=== PATIENT | female | born 1955 | race Hispanic/Latino ===

== ENCOUNTER 2017-07-06 22:28 | Emergency (ER) | payer BC ==
[2017-07-06 23:10] LABS: Hemoglobin 14.8 g/dL (12.0-16.0); Mean Corpuscular HGB CONC 34.5 g/dL (32.0-36.0); Mean Corpuscular Hemoglobin 30.3 pg (27.0-31.0); Mean Corpuscular Volume 87.8 fl (81.0-99.0); Mean Platelet Volume 11.3 fL (7.4-10.4); Platelet Count 208 thou/uL (130-400); RBC Distribution Width 11.4 % (11.5-14.5); Red Blood Cell (RBC) Count 4.87 mill/uL (4.20-5.40); White Blood Cell (WBC) Count 10.1 thou/uL (4.8-10.8)
--- NOTE | 2017-07-06 23:10 | CT ---
CT OF HEAD NONCONTRAST 07/06/17 INDICATION: Recent onset dizziness, near syncope. FINDINGS: There is no acute intracranial hemorrhage, mass effect, midline shift or ventriculomegaly. Mild mucos al thickening is seen within the paranasal sinuses. IMPRESSION: No acute intracranial abnormalities. POS: [facility]
--- NOTE | 2017-07-06 23:11 | RAD ---
PORTABLE AP CHEST X-RAY 07/06/17 HISTORY: Altered mental status and dizziness. COMPARISON: 07/12/15. FINDINGS: The cardiac silhouette and pulmonary vasculature are within normal limits. The lungs remain clear. Th ere has been no interval change when compared to the prior exam. IMPRESSION: No acute cardiopulmonary process. POS: [facility]
[2017-07-06 23:13] LABS: ALT (SGPT) 30 U/L (8-55); AST (SGOT) 24 U/L (5-34); Albumin 4.1 g/dL (3.4-4.8); Alkaline Phosphatase 77 U/L (40-150); Anion Gap 14 mmol/L (10-20); BUN (Urea Nitrogen) 12 mg/dL (9.8-20.1); Bilirubin, Total 0.7 mg/dL (0.2-1.2); CK (CPK) 175 U/L (29-168); CKMB 2.3 ng/mL (0-6.6); Calc. Creatinine Clearance 0 mL/min (70-130); Calcium 9.9 mg/dL (7.8-10.44); Carbon Dioxide 23 mmol/L (23-31); Chloride 105 mmol/L (98-107); Estimated GFR-MDRD 77; Globulin 3.5 g/dL (2.4-3.5); Glucose 112 mg/dL (80-115); Lipase 12 U/L (8-78); Potassium 4.2 mmol/L (3.5-5.1); Protein, Total 7.6 g/dL (6.0-8.3); Sodium 138 mmol/L (136-145); Troponin I Less than 0.010 ng/mL (< 0.028)
[2017-07-06] MEDS ORDERED: Ketorolac Tromethamine 30 MG/ML VIAL ONE (23:17)
[2017-07-06] MEDS ORDERED: Metoclopramide HCl 10 MG/2 ML VIAL ONE (23:17)
[2017-07-06] MEDS ORDERED: diphenhydrAMINE 50 MG/ML VIAL ONE (23:17)
[2017-07-06] MEDS ORDERED: Diazepam 5 MG TAB ONE (23:18)
[2017-07-06 23:20] LABS: Band 3 % (5-11); Eosinophils 1 % (0-10); Lymphocytes 26 % (21-51); MDiff Complete? YES; Monocytes 4 % (0-10); Neutrophil 66 % (42-75)
[2017-07-06 23:37] LABS: Bilirubin Negative (Negative); Blood, Urine Negative (Negative); Clarity Slightly Cloudy (Clear); Glucose, Urine (Dipstick) Negative (Negative); Leukocyte Negative (Negative); Nitrite Negative (Negative); Protein, Urine (Dipstick) Negative (Neg-Trace)
== END 2017-07-07 00:38 | disposition home or self-care (01) ==
LOC: SCSER 22:28
DX: G43.909 Migraine, unspecified, not intractable, without status migrainosus (principal); E11.9 Type 2 diabetes mellitus without complications; I10 Essential (primary) hypertension; Z79.84 Long term (current) use of oral hypoglycemic drugs; Z79.899 Other long term (current) drug therapy
CPT/HCPCS: 70450; 71045; 80053; 81003; 82550; 82553; 83690; 84484; 85025; 93005; 96365; 96375; J1200; J1885; J2765

== ENCOUNTER 2018-03-30 16:16 | Observation (INO) | payer BC ==
[2018-03-30 17:03] LABS: #Basophils 0.1 thou/uL (0.0-0.2); #Eosinphils 0.2 thou/uL (0.0-0.7); #Lymphocytes 3.1 thou/uL (1.20-3.40); #Neutrophils 7.3 thou/uL (1.40-6.50); %Basophils 0.9 % (0.0-1.0); %Eosinophils 1.5 % (0.0-10.0); %Lymphocytes 26.9 % (21.0-51.0); %Monocytes 8.4 % (0.0-10.0); %Neutrophils 62.4 % (42.0-75.0); Hemoglobin 15.6 g/dL (12.0-16.0); Mean Corpuscular Volume 90.8 fL (78.0-98.0); Mean Platelet Volume 9.7 fL (7.4-10.4); Platelet Count 204 thou/uL (130-400); RBC Distribution Width 12.5 % (11.5-14.5); Red Blood Cell (RBC) Count 5.36 mill/uL (4.20-5.40); White Blood Cell (WBC) Count 11.6 thou/uL (4.8-10.8)
[2018-03-30 17:33] LABS: ALT (SGPT) 27 U/L (8-55); AST (SGOT) 27 U/L (5-34); Albumin 4.4 g/dL (3.4-4.8); Alkaline Phosphatase 87 U/L (40-150); Anion Gap 14 mmol/L (10-20); BUN (Urea Nitrogen) 15 mg/dL (9.8-20.1); Bilirubin, Total 0.9 mg/dL (0.2-1.2); CK (CPK) 170 U/L (29-168); Calc. Creatinine Clearance 0 mL/min (70-130); Calcium 10.2 mg/dL (7.8-10.44); Carbon Dioxide 25 mmol/L (23-31); Chloride 103 mmol/L (98-107); Estimated GFR-MDRD 68; Globulin 4.2 g/dL (2.4-3.5); Glucose 107 mg/dL (80-115); Lipase 15 U/L (8-78); Potassium 4.5 mmol/L (3.5-5.1); Protein, Total 8.6 g/dL (6.0-8.3); Sodium 137 mmol/L (136-145)
[2018-03-30 17:34] LABS: CKMB 2.7 ng/mL (0-6.6); Troponin I Less than 0.010 ng/mL (< 0.028)
[2018-03-30] MEDS ORDERED: Acetaminophen 500 MG TAB ONE (18:39)
--- NOTE | 2018-03-30 19:33 | RAD ---
CHEST ONE VIEW 03/30/18 INDICATION: Shortness of breath. COMPARISON: Prior exam dated 06/26/17. IMPRESSION: No acute cardiopulmonary abnormality. The examination does not appear appreciably changed from the co mparison study. POS: [facility]
[2018-03-30] MEDS ORDERED: traMADol HCl 50 MG TAB ONE (19:54)
--- NOTE | 2018-03-30 20:16 | PDOC.FPRHP ---
- History of Present Illness Chief Complaint: Weakness, difficulty with speech History of Present Illness: This is a 62 yo female with a pmh of HTN, DM2, HLD who presents to the ed with a cc of dragging her feet, word finding difficulty, and left mastoid pain. She states that she woke up this morning and reports dragging her feet and being confused. She states that she has had a difficult time speaking during the day as well. Her daughter confirms this and reports that the confusion has been improving since this morning. Pt. reports that she can think of what word she wants to say but has a hard time articulating the word. She denies having anything like this before. She states that she ran out of her home medications on Tuesday. Left mastoid pain started 3 days ago. It is a sharp pain made worse with palpation. - Allergies/Adverse Reactions Allergies Allergy/AdvReac Type Severity Reaction Status Date / Time amoxicillin [From Augmentin] Allergy Verified 03/30/18 22:51 clavulanic acid Allergy Verified 03/30/18 22:51 [From Augmentin] erythromycin base Allergy Verified 03/30/18 22:51 - Home Medications Medication Instructions Recorded Confirmed Type Lisinopril 10 mg PO DAILY 03/30/18 03/30/18 History metFORMIN [Glucophage] 500 mg PO BID 03/30/18 03/30/18 History - History PMHx: HTN, DM2, HLD PSHx: Hysterectomy, cholesyctectomy FHx: none contributory Social: Denies A/D/T - Review of Systems General: denies: fever/chills, weight/appetite/sleep changes Eyes: denies: eye pain, vision changes ENT: denies: nasal congestion, rhinorrhea 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 denies: cough Cardiovascular: denies: chest pain, palpitation Gastrointestinal: reports: nausea. denies: vomiting, diarrhea, constipation Genitourinary: denies: incontinence, dysuria Skin: denies: rashes, lesions, jaundice Musculoskeletal: denies: pain, tenderness (reports draging her feet. Does not report any upper extermity weakness) Neurological: reports: weakness. denies: numbness, syncope Psychological: denies: anxiety, depression - Vital signs BP: 133/84 HR: 74 RR: 17 Tmax: 99.3 Pox: 98 % on ra Wt: 87.1 kg - Physical Exam Constitutional: NAD, awake, alert and oriented, well developed HEENT: normocephalic and atraumatic, PERRLA, EOMI, MMM Neck: supple, trachea midline, other (tenderness over her left mastoid process) Chest: no-tender to palpation Heart: RRR, normal S1/S2, no murmurs/rubs/gallops Lungs: CTAB, no respiratory distress, other (fine crackles at bases bilaterally) Musculoskeletal: normal structure, other (4.5/5 strenght on left extremities, 5/ 5 on right.) Neurological: CN II-XII intact, normal sensation Skin: good turgor, capillary refill <2 seconds Psychiatric: normal mood and affect, good judgment and insight, intact recent and remote memory FMR H&P: Results - Labs Result Diagrams: 03/31/18 04:11 03/31/18 04:11 Lab results: WBC 11.6 thou/uL (4.8-10.8) H 03/30/18 16:54 Hgb 15.6 g/dL (12.0-16.0) 03/30/18 16:54 Hct 48.7 % (36.0-47.0) H 03/30/18 16:54 MCV 90.8 fL (78.0-98.0) 03/30/18 16:54 Plt Count 204 thou/uL (130-400) 03/30/18 16:54 Neutrophils % 62.4 % (42.0-75.0) 03/30/18 16:54 Sodium 137 mmol/L (136-145) 03/30/18 16:54 Potassium 4.5 mmol/L (3.5-5.1) 03/30/18 16:54 Chloride 103 mmol/L (98-107) 03/30/18 16:54 Carbon Dioxide 25 mmol/L (23-31) 03/30/18 16:54 BUN 15 mg/dL (9.8-20.1) 03/30/18 16:54 Creatinine 0.84 mg/dL (0.6-1.1) 03/30/18 16:54 Glucose 107 mg/dL (80-115) 03/30/18 16:54 Calcium 10.2 mg/dL (7.8-10.44) 03/30/18 16:54 Total Bilirubin 0.9 mg/dL (0.2-1.2) 03/30/18 16:54 AST 27 U/L (5-34) 03/30/18 16:54 ALT 27 U/L (8-55) 03/30/18 16:54 Alkaline Phosphatase 87 U/L (40-150) 03/30/18 16:54 Creatine Kinase 170 U/L (29-168) H 03/30/18 16:54 CK-MB (CK-2) 2.7 ng/mL (0-6.6) 03/30/18 16:54 Serum Total Protein 8.6 g/dL (6.0-8.3) H 03/30/18 16:54 Albumin 4.4 g/dL (3.4-4.8) 03/30/18 16:54 Lipase 15 U/L (8-78) 03/30/18 16:54 - Radiology Interpretation CT scan - head Status: report reviewed by me (no acute intracranial processes) Other Status: report reviewed by me (CT head angio: no lesions visualized) FMR H&P: A/P - Problem List (1) Diabetes mellitus Current Visit: Yes Status: Acute Code(s): E11.9 - TYPE 2 DIABETES MELLITUS WITHOUT COMPLICATIONS (2) Hypertension Current Visit: Yes Status: Acute Code(s): I10 - ESSENTIAL (PRIMARY) HYPERTENSION (3) TIA (transient ischemic attack) Current Visit: Yes Status: Acute Code(s): G45.9 - TRANSIENT CEREBRAL ISCHEMIC ATTACK, UNSPECIFIED - Plan This is a 62 yo female with a PMH of HTN, HLD, DM2 Acute CVA vs. TIA -Admit to stroke obs. Pt. passed bedside swallow. Pt. given aspirin and restarted on her statin. We are pending Brain MRI and TTE. We will consult neuro and stroke team based on the results. HTN -We are holding BP medication to allow for permissive HTN DM2 -Continue home metformin 500mg BID HLD -Restart atorvastatin 40 mg Code: DNR Prophylasis: SCDs Family: Daughter at bedside Disposition: Home in 1-2 days FMR H&P: Upper Level - Pertinent history 62 yo female here for difficulty walking and difficulty finding words starting this morning. Reports she was in her normal state of health last night until this morning when she woke up and appeared to have confusion with difficuty verbalizing. 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 Also describes nausea and neck pain for the past 3 days. Denies SOB, CP, vomiting. Hx of HTN, DMII, HLD, obesity, left popliteal fossa bakers cyst. Has not been taking atorvastatin 40mg. Does take metformin 500mg bid. Ran out of lisinopril 10mg about a week ago. - Pertinent findings 140/88 HR: 73 97% on RA RR: 16 GEN: NAD, difficulty coming up with words when asked questions CARD: RRR, no m/g/r NEURO: CN II-12 intact, mild weakness in left LE on strength testing, though this could be due to pain from bakers cyst of left popliteal fossa; mild decreased sensation on left side of face including forehead; deficit in left sided disdiadokokinesia CT brain and CTangio head/neck reviewed by me with no significant findings, await overread by radiology - Plan Date/Time: 03/30/182015 IBandar DO, have evaluated this patient and agree with findings/plan as outlined by audit intern resident. Pertinent changes/additions are listed here. CVA vs TIA -imaging negative -admit to stroke -MRI, ECHO tomorrow -passed swallow study in the ED -ensure patient is on optimal standard of care medications HTN -continue to monitor -home meds DMII -continue home meds left sided temporal pain -low suspicion this is related based on timecourse and exam -analgesics and continue to monitor
--- NOTE | 2018-03-30 20:47 | CT ---
CT BRAIN WITHOUT CONTRAST: History: Altered mental status. Comparison: 07-06-17 FINDINGS: No acute infarct, hemorrhage, or hydrocephalus is evident. There is mild generalized cerebral atrophy . Septal pellucidum and third ventricle are midline. There are scattered vascular calcifications invo lving the intracranial vessels. Mastoid air cells are clear. Skull is intact. IMPRESSION: 1. No acute intracranial abnormality. 2. Stable chronic findings as above. POS: [facility]
[2018-03-30] MEDS ORDERED: Aspirin 81 mg Enteric Coated Tablet ONE (20:49)
--- NOTE | 2018-03-30 20:57 | CT ---
CTA BRAIN WITH IV CONTRAST AND 3D REFORMATTED IMAGING: Indication: Shortness of breath, difficulty speaking, confusion, pain within the left mastoid region. FINDINGS: No hemodynamically significant stenosis, lesion or aneurysmal formation is demonstrated. There is fet al origin of the left [employer]. 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 There are mild vascular calcifications involving the carotids. No definite abnormal region of enhancement i s noted. Midline shift is evident. There is mild generalized cerebral atrophy. The visualized mastoid air cells are clear. IMPRESSION: No hemodynamically significant stenosis, lesion, or aneurysmal formation is demonstrated. POS: [facility]
[2018-03-30] MEDS ORDERED: Ondansetron ODT 4 MG TAB SL PRN (22:52)
[2018-03-30] MEDS ORDERED: Acetaminophen 325 MG TAB PO PRN (22:52)
[2018-03-30] MEDS ORDERED: Ondansetron PF 4 MG/2 ML Vial IVP PRN ×2 (22:52→23:42)
[2018-03-30] MEDS ORDERED: Sodium Chloride 0.9% 1,000 ML IV SCH (23:00)
[2018-03-30 23:22] VITALS: BMI 37.8
[2018-03-30] MEDS ORDERED: Ondansetron ODT 4 MG TAB PO PRN (23:42)
[2018-03-30] MEDS ORDERED: Labetalol HCl 100 MG/20 ML VIAL SLOW IVP PRN (23:42)
[2018-03-31] MEDS: Acetaminophen 500 MG TAB PO PRN (04:32)
[2018-03-31 04:33] LABS: #Basophils 0.1 thou/uL (0.0-0.2); #Eosinphils 0.3 thou/uL (0.0-0.7); #Lymphocytes 2.8 thou/uL (1.20-3.40); #Monocytes 0.9 thou/uL (0.11-0.59); #Neutrophils 3.7 thou/uL (1.40-6.50); %Basophils 0.7 % (0.0-1.0); %Eosinophils 4.3 % (0.0-10.0); %Lymphocytes 35.8 % (21.0-51.0); %Monocytes 11.2 % (0.0-10.0); Hemoglobin 13.4 g/dL (12.0-16.0); Mean Corpuscular HGB CONC 32.5 g/dL (32.0-36.0); Mean Corpuscular Hemoglobin 29.7 pg (27.0-31.0); Mean Corpuscular Volume 91.4 fL (78.0-98.0); Platelet Count 176 thou/uL (130-400); RBC Distribution Width 12.6 % (11.5-14.5); Red Blood Cell (RBC) Count 4.52 mill/uL (4.20-5.40); White Blood Cell (WBC) Count 7.8 thou/uL (4.8-10.8)
[2018-03-31 04:59] LABS: Anion Gap 11 mmol/L (10-20); BUN (Urea Nitrogen) 16 mg/dL (9.8-20.1); Calc. Creatinine Clearance 96 mL/min (70-130); Calcium 9.1 mg/dL (7.8-10.44); Carbon Dioxide 25 mmol/L (23-31); Cardiac Risk 4.2 (Less than 4.5); Chloride 106 mmol/L (98-107); Cholesterol 154 mg/dl (< 200 Desired); Estimated GFR-MDRD 73; Glucose 187 mg/dL (80-115); HDL Cholesterol 37 mg/dL (>60 Neg Risk); LDL Cholesterol, Calculated 95 mg/dL; Potassium 3.6 mmol/L (3.5-5.1); Sodium 138 mmol/L (136-145); Triglycerides 111 mg/dL (Less than 150)
--- NOTE | 2018-03-31 05:51 | PDOC.FM ---
- Subjective Subjective: Pt reports mild improvement but continuation of L mastoid pain. Reports no changes in neuro symptoms. No other complaints at this time. No cp no palpitations, no sob no cough, no nausea, no vomiting - Objective MAR Reviewed: Yes Vital Signs & Weight: Vital Signs (12 hours) Temp Pulse Resp BP Pulse Ox 03/31/18 03:42 97.7 F 72 18 109/62 95 03/31/18 00:45 95 03/30/18 22:23 98.9 F 76 18 134/72 96 Weight Weight 84.822 kg Result Diagrams: 03/31/18 04:11 03/31/18 04:11 <Abdullahi Romano - Last Filed: 03/31/18 08:38> - Objective Vital Signs & Weight: Vital Signs (12 hours) Temp Pulse Pulse Pulse Resp BP BP 03/31/18 12:00 98.0 F 70 14 03/31/18 11:20 71 70 143/75 H 134/66 03/31/18 11:05 70 71 138/73 143/75 H 03/31/18 07:51 98.4 F 70 16 03/31/18 03:42 97.7 F 72 18 BP Pulse Ox 03/31/18 12:00 158/80 H 99 03/31/18 11:20 03/31/18 11:05 03/31/18 07:51 116/59 L 95 03/31/18 03:42 109/62 95 Weight Weight 84.822 kg I&O: 03/30/18 03/31/18 04/01/18 06:59 06:59 06:59 Intake Total 915 Output Total 1 Balance 914 Result Diagrams: 03/31/18 04:11 03/31/18 04:11 <Alexey Bellamy - Last Filed: 03/31/18 15:09> Phys Exam - Physical Examination Constitutional: NAD HEENT: moist MMs, sclera anicteric Neck: no JVD, supple Respiratory: no wheezing, no rales Cardiovascular: RRR, no significant murmur Gastrointestinal: soft, non-tender Musculoskeletal: no edema, pulses present Neurological: moves all 4 limbs mildly decreased sensation on LLE, good coordination Psychiatric: normal affect, A&O x 3 Skin: no rash, normal turgor <Abdullahi Romano - Last Filed: 03/31/18 08:38> Dx/Plan (1) TIA (transient ischemic attack) Code(s): G45.9 - TRANSIENT CEREBRAL ISCHEMIC ATTACK, UNSPECIFIED Status: Acute (2) Hypertension Code(s): I10 - ESSENTIAL (PRIMARY) HYPERTENSION Status: Acute (3) Diabetes mellitus Code(s): E11.9 - TYPE 2 DIABETES MELLITUS WITHOUT COMPLICATIONS Status: Acute - Plan Plan: CVA vs TIA A-imaging negative so far, passed swallow study in the ED P-ASA -atorvastatin -MRI, ECHO today left sided mastoid pain A-low suspicion of relation to CC, pt is afebrile and has no displacement of Ear , no edema/erythema/signs of infection P-analgesics and continue to monitor HTN A- BP 109/62 this AM, Pt is within 48hr window for permissive HTN P- hold home meds for now DMII -home meds <Abdullahi Romano - Last Filed: 03/31/18 08:38> Attending Addendum - Attending Addendum Date/Time: 03/31/18 [id number] I personally evaluated the patient and discussed the management with Dr. Romano and team. I agree with and repeated the History, Examination, Assessment and Plan documented above with any addition or exceptions noted below. Pt with improvement in symptoms. She has a nonfocal exam, with CN II-XII intact and symmetric, no focal weakness, and SILT throughout, excellent coordination. Await studies and likely d/c afterward. <Aelxey Bellamy - Last Filed: 03/31/18 15:09>
[2018-03-31] MEDS ORDERED: Aspirin 325 mg Enteric Coated Tablet PO SCH (09:00)
[2018-03-31] MEDS: metFORMIN 500 MG TAB PO SCH ×2 (09:24→20:13)
[2018-03-31] MEDS: Aspirin 81 mg Enteric Coated Tablet PO SCH (09:24)
--- NOTE | 2018-03-31 09:26 | MRI ---
MRI BRAIN NONCONTRAST: HISTORY: Altered mental status. FINDINGS: There is no evidence of acute intracranial hemorrhage or infarct. Mild diffuse cortical atrophy. Ve ntricles appear normal in size, shape, and position. No mass effect or shift of midline structures. Visualized paranasal sinuses remain well aerated. IMPRESSION: No acute intracranial abnormalities are demonstrated. POS: [facility]
[2018-03-31] MEDS: traMADol HCl 50 MG TAB PO PRN ×2 (12:00→20:13)
[2018-03-31] MEDS ORDERED: Atorvastatin Calcium 40 MG TAB PO SCH (21:00)
[2018-04-01] MEDS: traMADol HCl 50 MG TAB PO PRN (04:00)
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
[2018-04-01] MEDS: Acetaminophen 500 MG TAB PO PRN (06:21)
--- NOTE | 2018-04-01 08:01 | CON ---
DATE OF CONSULTATION: 04/01/2018. CONSULTING PHYSICIAN: Family Medicine. IMPRESSION: Left occipital headache, possibly migrainous in origin. PLAN: April protocol. HISTORY OF PRESENT ILLNESS: Ms. Benjamin is a 62-year-old female who reports a distant history of migraines. She has had a persistent headache for the last 3 days that has been primarily in the l eft occipital area. There is some associated nausea and vomiting. She felt like she was having a bi t of confusion and difficulty speaking. She came to the emergency room for evaluation. She had an M RI of the brain done, which was normal. Echocardiogram showed an ejection fraction of 50%-55%. Her CT angiogram of the head was unremarkable for any carotid or intracranial stenosis. Her vital signs have been stable and she has been afebrile. LABORATORY STUDIES: Showed unremarkable CBC and serum chemistry panel other than mild hyperglycemia. She has been given tramadol and Tylenol, neither of which have provided any relief. PAST MEDICAL HISTORY: Diabetes. FAMILY HISTORY: Noncontributory. MEDICATIONS: List was reviewed. ALLERGIES: AMOXICILLIN, CLAVULANIC ACID, ERYTHROMYCIN. SOCIAL HISTORY: Unremarkable. REVIEW OF SYSTEMS: No complaints of difficulty swallowing, focal weakness or numbness of the extremi ties. PHYSICAL EXAMINATION: GENERAL: She is a well-nourished middle-aged woman in mild distress secondary to pain. HEENT: There is some left occipital cranial tenderness to palpation. There is no temporalis tendern ess present. TMJ movement was smooth. Pupils are equal and reactive. Conjunctivae clear. NECK: Supple, no pain elicited with neck movement. NEUROLOGIC: She is alert and cooperative. Her speech is fluent and clear. Exam is nonfocal. STUDIES: Were reviewed. SUMMARY: This is a 62-year-old woman with a several day history of persistent occipital headache wit h nausea and vomiting. I suspect this is migraine. Hopefully, she will respond to the April protoc ol.
[2018-04-01] MEDS ORDERED: Metoclopramide HCl 10 MG/2 ML VIAL IVP SCH (08:15)
[2018-04-01] MEDS ORDERED: Dihydroergotamine Mesylate 1 MG/ML AMP SLOW IVP SCH (08:15)
[2018-04-01] MEDS ORDERED: Dexamethasone 4 mg/ml Vial SLOW IVP SCH (08:15)
[2018-04-01] MEDS ORDERED: Ketorolac Tromethamine 30 MG/ML VIAL IVP PRN (08:20)
[2018-04-01] MEDS ORDERED: Lisinopril 10 MG TAB PO SCH (09:00)
[2018-04-01] MEDS ORDERED: Ketorolac Tromethamine 30 MG/ML VIAL IM PRN (09:01)
[2018-04-01] MEDS ORDERED: Dexamethasone 4 mg/ml Vial IM SCH (09:15)
[2018-04-01] MEDS ORDERED: Dihydroergotamine Mesylate 1 MG/ML AMP IM SCH (09:15)
[2018-04-01] MEDS ORDERED: Metoclopramide HCl 10 MG/2 ML VIAL IM SCH (09:15)
[2018-04-01] MEDS: metFORMIN 500 MG TAB PO SCH (10:09)
[2018-04-01] MEDS: Aspirin 81 mg Enteric Coated Tablet PO SCH (10:09)
[2018-04-01 12:42] VITALS: BP 126/65; TEMP 98.9
--- NOTE | 2018-04-02 17:07 | DIS-2 ---
DATE OF ADMISSION: 03/30/2018 DATE OF DISCHARGE: 04/01/2018 RESIDENT: Abdullahi Romano. ADMITTING ATTENDING: Abdullahi Craven M.D. DISCHARGE ATTENDING: Alexey Bellamy M.D. CONSULTATIONS: Neurology [facility]. PROCEDURES: 1. On 03/30/2018, chest x-ray, impression: No acute cardiopulmonary abnormality. The examination d oes not appear appreciably changed from the comparison study. 2. Brain CT, impression: No acute intracranial abnormality, stable chronic findings as above. 3. CT [place] angio with contrast. Impression: No hemodynamically significant stenosis, l esion or aneurysmal formation that is demonstrated. 4. On 03/31/2018, brain MRI. Impression: No acute intracranial abnormalities are demonstrated. 5. Echocardiogram on 03/31/2018, there is suboptimal study due to poor echocardiographic window. Ej ection fraction is visually estimated at 50%-55%, normal left atrium size. Left ventricular size is normal. Aortic valve leaflets are somewhat thickened. Mild mitral regurg is present. No thrombus i s noted in the cardiac chambers. PRIMARY DIAGNOSIS: Transient ischemic attack versus possible conversion disorder. SECONDARY DIAGNOSES: Hypertension and diabetes mellitus. DISCHARGE MEDICATIONS: 1. Lisinopril 10 mg p.o. daily. 2. Metformin 500 mg p.o. b.i.d. 3. Acetaminophen 1000 mg p.o. q.6 hours p.r.n. 20 tabs. 4. Aspirin 81 mg p.o. daily. 5. Atorvastatin 40 mg p.o. at bedtime. DISCONTINUED MEDICATIONS: None. HISTORY OF PRESENT ILLNESS AND HOSPITAL COURSE: This is a 62-year-old female with past medical histo ry of type 2 diabetes and hypertension who presented to the ED with chief complaint of neurological s ymptoms such as dragging feet, word finding difficulty and general feeling of being confused. Onset was 24 hours prior to presentation to the ED and the patient was admitted for stroke workup. Through out the hospital stay, all imaging including CT of the head, CT of angio and brain MRI, all came back negative as well as a negative echocardiogram for thrombi. On further evaluation of the patient, lenka cruz disclosed many recent stressors in life including a demolished house and several family life st ressors. Patient reported that these had been weighing on her especially in heart recently and they have been contributing to symptoms. Patient also complained of headache which was mildly relieved wi th tramadol and DHE 45 as well as Toradol and metoclopramide. Neurology was consulted and had suspec veronica diagnosis of migraine which was responsive to April protocol. Once the patient was deemed safe for discharge, patient was discharged home with instructions for followup with PCP and to address fam sherri stressors. DISPOSITION: Stable. DISCHARGE INSTRUCTIONS: 1. Location: Home. 2. Diet: Healthy heart diet. 3. Activity: As tolerated. 4. Follow up with PCP Masha Gonzales in [address] Cholo Farris in 2-3 weeks.
== END 2018-04-01 14:05 | disposition home or self-care (01) ==
LOC: ERS 16:16 → 2SE 19:15
PROVIDERS: ADMIT Family Medicine; ATTEND Family Medicine
DX: R53.1 Weakness (principal); R47.89 Other speech disturbances; R51 Headache; E11.9 Type 2 diabetes mellitus without complications; E78.5 Hyperlipidemia, unspecified; I10 Essential (primary) hypertension; Z79.84 Long term (current) use of oral hypoglycemic drugs; Z79.899 Other long term (current) drug therapy; Z88.0 Allergy status to penicillin; Z88.8 Allergy status to other drugs, medicaments and biological substances; Z66 Do not resuscitate; Z91.14 Patient's other noncompliance with medication regimen
CPT/HCPCS: 36415; 36416; 70450; 70496; 70551; 71045; 80048; 80053; 80061; 82550; 82553; 83690; 84484; 85025; 90471; 90686; 93005; 93306; 96372; 96374; 96376; G0008; G0378; G8978-GP-CJ; G8979-GP-CJ; G8980-GP-CJ; G8987-GO-CI; G8988-GO-CI; G8989-GO-CI; J1100; J1110; J1885; J2405; J2765; Q0162

== ENCOUNTER 2018-05-31 16:00 | Emergency (ER) | payer BC, SELFPAY ==
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
== END 2018-05-31 18:22 | disposition home or self-care (01) ==
LOC: ERS 16:00
DX: R07.89 Other chest pain (principal); M25.561 Pain in right knee; M25.511 Pain in right shoulder; E11.9 Type 2 diabetes mellitus without complications; I10 Essential (primary) hypertension; E78.5 Hyperlipidemia, unspecified; Z86.73 Personal history of transient ischemic attack (TIA), and cerebral infarction without residual deficits; Z79.84 Long term (current) use of oral hypoglycemic drugs; Z79.899 Other long term (current) drug therapy; V43.52XA Car driver injured in collision with other type car in traffic accident, initial encounter
CPT/HCPCS: 70450; 71046; 72125

== ENCOUNTER 2019-03-07 13:55 | Outpatient (CLI) | payer MEDICARE, BC ==
--- NOTE | 2019-03-07 14:44 | MMO ---
Bilateral MAMMO Bilat Screen [facility]DI+DO. CLINICAL HISTORY: Patient is 63 years old and is seen for screening. The patient has no family history of breast cancer. The patient has a history of cervical cancer at age 30. VIEWS: The views performed were: bilateral craniocaudal with tomosynthesis and bilateral mediolateral oblique with tomosynthesis. FILMS COMPARED: The present examination has been compared to prior imaging studies performed at [facility] on 06/29/2010 and 03/27/2014. This study has been interpreted with the assistance of computer-aided detection. MAMMOGRAM FINDINGS: There are scattered fibroglandular densities. There are stable benign appearing calcifications seen in both breasts. There are no suspicious masses, suspicious calcifications, or new areas of architectural distortion. IMPRESSION: THERE IS NO MAMMOGRAPHIC EVIDENCE OF MALIGNANCY. A ROUTINE FOLLOW-UP MAMMOGRAM IN 1 YEAR IS RECOMMENDED. THE RESULTS OF THIS EXAM WERE SENT TO THE PATIENT. ACR BI-RADS Category 2 - Benign finding MAMMOGRAPHY NOTE: 1. A negative mammogram report should not delay a biopsy if a dominant of clinically suspicious mass is present. 2. Approximately 10% to 15% of breast cancers are not detected by mammography. 3. Adenosis and dense breasts may obscure an underlying neoplasm. Reported by: BILLIE CHAKRABORTY MD Electonically Signed: [id number]
== END 2019-03-07 13:56 | disposition home or self-care (01) ==
LOC: BICMAMMO 13:55
PROVIDERS: ATTEND Family Medicine
DX: Z12.31 Encounter for screening mammogram for malignant neoplasm of breast (principal); Z85.41 Personal history of malignant neoplasm of cervix uteri
CPT/HCPCS: 77063; 77067

== ENCOUNTER 2020-08-04 14:43 | Outpatient (CLI) | payer MEDICARE | END 2020-08-04 14:44 | disposition home or self-care (01) | LOC: BICMAMMO 14:43 | PROVIDERS: ATTEND Student in an Organized Health Care Education/Training Program | DX: Z12.31 Encounter for screening mammogram for malignant neoplasm of breast (principal); Z13.820 Encounter for screening for osteoporosis; M85.89 Other specified disorders of bone density and structure, multiple sites; Z85.41 Personal history of malignant neoplasm of cervix uteri | CPT/HCPCS: 77063; 77067; 77080 ==

== ENCOUNTER 2020-11-26 07:55 | Outpatient (CLI) | payer MEDICARE | END 2020-11-26 07:56 | disposition home or self-care (01) | LOC: TBSIIMAG 07:55 | PROVIDERS: ATTEND Nurse Practitioner Family | DX: M71.22 Synovial cyst of popliteal space [Baker], left knee (principal); M25.462 Effusion, left knee; M17.12 Unilateral primary osteoarthritis, left knee ==

== ENCOUNTER 2021-03-06 08:06 | Outpatient (CLI) | payer MEDICARE ==
[2021-03-06 10:05] LABS: Anion Gap 16 mmol/L (10-20); BUN (Urea Nitrogen) 17 mg/dL (9.8-20.1); Calc. Creatinine Clearance 0 mL/min (70-130); Calcium 10.5 mg/dL (7.8-10.44); Carbon Dioxide 22 mmol/L (23-31); Chloride 106 mmol/L (98-107); Glucose 109 mg/dL (80-115); Potassium 4.6 mmol/L (3.5-5.1); Sodium 139 mmol/L (136-145)
[2021-03-06 18:13] LABS: SARS-CoV-2 PCR by NAA Not Detected (NotDetected)
== END 2021-03-06 08:07 | disposition home or self-care (01) ==
LOC: LABBT 08:06
PROVIDERS: ATTEND Orthopaedic Surgery
DX: Z01.818 Encounter for other preprocedural examination (principal); M17.12 Unilateral primary osteoarthritis, left knee; Z20.822 Contact with and (suspected) exposure to COVID-19
CPT/HCPCS: 80048; 87081; 93005; U0003; U0005; 93010

== ENCOUNTER 2023-04-12 13:02 | Outpatient (CLI) | payer OTHER | END 2023-04-12 13:03 | disposition home or self-care (01) | LOC: BICMAMMO 13:02 | PROVIDERS: ATTEND Student in an Organized Health Care Education/Training Program | DX: Z12.31 Encounter for screening mammogram for malignant neoplasm of breast (principal); Z13.820 Encounter for screening for osteoporosis; M85.89 Other specified disorders of bone density and structure, multiple sites; Z80.3 Family history of malignant neoplasm of breast; Z85.41 Personal history of malignant neoplasm of cervix uteri | CPT/HCPCS: 77063; 77067; 77080 ==

== ENCOUNTER 2024-06-02 21:51 | Emergency (ER) | payer OTHER ==
[2024-06-02] MEDS ORDERED: traMADol HCl 50 MG TAB ONE (23:05)
== END 2024-06-03 00:30 | disposition home or self-care (01) ==
LOC: ERS 21:51
DX: S22.32XA Fracture of one rib, left side, initial encounter for closed fracture (principal); E11.9 Type 2 diabetes mellitus without complications; I10 Essential (primary) hypertension; E78.5 Hyperlipidemia, unspecified; Z79.899 Other long term (current) drug therapy; Z79.84 Long term (current) use of oral hypoglycemic drugs; X50.1XXA Overexertion from prolonged static or awkward postures, initial encounter
CPT/HCPCS: 71045; 71250